=== PATIENT | female | born 1970 | race Two or more races ===

== ENCOUNTER 2021-09-07 16:47 | Outpatient (CLI) | payer OTHER | END 2021-09-07 23:00 | disposition home or self-care (01) | LOC: LAB 16:47 | PROVIDERS: ATTEND Internal Medicine Hematology & Oncology | DX: D51.1 Vitamin B12 deficiency anemia due to selective vitamin B12 malabsorption with proteinuria (principal); D51.0 Vitamin B12 deficiency anemia due to intrinsic factor deficiency; E61.2 Magnesium deficiency; C50.919 Malignant neoplasm of unspecified site of unspecified female breast; R97.8 Other abnormal tumor markers; C25.9 Malignant neoplasm of pancreas, unspecified; C56.9 Malignant neoplasm of unspecified ovary; R97.1 Elevated cancer antigen 125 [CA 125]; R97.0 Elevated carcinoembryonic antigen [CEA]; D50.0 Iron deficiency anemia secondary to blood loss (chronic); D51.3 Other dietary vitamin B12 deficiency anemia; C18.7 Malignant neoplasm of sigmoid colon ==